=== PATIENT | female | born 1985 | race Caucasian/White ===

== ENCOUNTER 2021-08-31 17:56 | Inpatient (IN) | payer BC, SELFPAY ==
[2021-08-31] VITALS (59 sets, daily range): BP systolic 104–143; BP diastolic 57–111; PULSE 80–295; TEMP 37.4–37.6; O2SAT 98–100; BMI 30.7
[2021-08-31 19:21] LABS: Basophils Absolute Auto 0.1 K/mm3 (0.0-0.1); Basophils Percent Auto 0.6 % (0.2-1.2); Eosinophils Absolute Auto 0.1 K/mm3 (0-0.3); Eosinophils Percent Auto 1.6 % (0-4.4); Hematocrit 31.5 % (37.0-47.0); Hemoglobin 10.7 g/dL (12.0-15.0); Immature Granulocyte Absolute 0.11 K/mm3 (0.00-0.031); Immature Granulocyte Percent A 1.3 % (0-0.5); Lymphocytes Absolute Auto 2.07 K/mm3 (0.9-3.2); Lymphocytes Percent Auto 23.9 % (18.3-44.2); Mean Corpuscular Hemoglobin 31.6 pg (26-34); Mean Corpuscular Volume 92.9 fl (80-100); Mean Platelet Volume 10.6 fl (7.4-10.4); Monocytes Absolute Auto 0.9 K/mm3 (0.1-0.6); Monocytes Percent Auto 10.6 % (2.6-8.5); Neutrophils Absolute Auto 5.4 K/mm3 (1.3-6.7); Platelet Count Result 200 k/mm3 (150-375); Red Blood Count 3.39 M/mm3 (4.2-5.4); Red Cell Distribution Width 12.7 % (11.5-14.5); White Blood Count 8.7 K/mm3 (4.5-10.0)
[2021-08-31] MEDS: LACTATED RINGERS 1,000 ML 125 ML IV CONT ×2 (20:48→22:39)
[2021-08-31] MEDS: OXYTOCIN 30 UNITS/NS 500 ML 30 UNITS/500 ML BAG IV CONT (20:49)
--- NOTE | 2021-08-31 22:05 | WPDANESEPPF ---
Anes - Initial Pre Proc Eval Procedure: labor epidural Date/Time: 08/31/21 22:05 Surgeon: Vinnie Silva MD Pre Op Diagnosis: labor pain Pre Op Diagnosis: Leaking Patient Data Age: 36 Gender: F Height: 1.5 m Weight: 69 kg Last Vital Signs Temp 37.6 C H 08/31/21 20:28 Pulse 98 08/31/21 22:03 BP 118/74 08/31/21 22:03 Pulse Ox 100 08/31/21 22:02 Allergies Allergy/AdvReac Type Severity Reaction Status Date / Time adhesive Allergy Hives Verified 08/21/21 12:30 cucumber Allergy Hives Verified 08/21/21 12:30 tramadol Allergy Itching Verified 08/21/21 12:30 Home Medications Medication Instructions Recorded Confirmed Type ergocalciferol (vitamin D2) 1,250 mcg PO WEEKLY 08/21/21 08/21/21 History [Vitamin D2] omeprazole 20 mg PO DAILY 08/21/21 08/21/21 History prenat.vits,scooter,omp-euzc-qwirq 1 tablet PO DAILY 08/21/21 08/21/21 History [ #2] Lacto.acidophilus-Bif.animalis 1 cap PO DAILY 08/31/21 08/31/21 History [Daily Probiotic] Laboratory Tests 08/31/21 08/31/21 08/31/21 18:49 18:49 18:49 WBC 8.7 K/mm3 K/mm3 (4.5-10.0) RBC 3.39 M/mm3 L M/mm3 (4.2-5.4) Hgb 10.7 g/dL L g/dL (12.0-15.0) Hct 31.5 % L % (37.0-47.0) MCV 92.9 fl fl (80-100) MCH 31.6 pg pg (26-34) MCHC 34.0 g/dl g/dl (32-36) RDW 12.7 % % (11.5-14.5) Plt Count 200 k/mm3 k/mm3 (150-375) MPV 10.6 fl H fl (7.4-10.4) Immature Gran % (Auto) 1.3 % H % (0-0.5) Neut % (Auto) 62.0 % % (45.5-73.1) Lymph % (Auto) 23.9 % % (18.3-44.2) [place] % (Auto) 10.6 % H % (2.6-8.5) Eos % (Auto) 1.6 % % (0-4.4) Baso % (Auto) 0.6 % % (0.2-1.2) Lymph # (Auto) 2.07 K/mm3 K/mm3 (0.9-3.2) [place] # (Auto) 0.9 K/mm3 H K/mm3 (0.1-0.6) Eos # (Auto) 0.1 K/mm3 K/mm3 (0-0.3) Baso # (Auto) 0.1 K/mm3 K/mm3 (0.0-0.1) Abs Immat Gran (auto) 0.11 K/mm3 H K/mm3 (0.00-0.031) Absolute Neuts (auto) 5.4 K/mm3 K/mm3 (1.3-6.7) Absolute Nucleated RBC 0.0 K/mm3 K/mm3 (0.0-0.012) Nucleated RBC % 0.0 % % (0.0-0.2) RPR Pending Blood Type A Positive Antibody Screen Negative Patient hx anesthesia problems: none Family hx anesthesia problems: none Results Review: All pre-operative results and documents have been reviewed as part of the pre-operative evaluation. [facility] Family History Family History Father Prostate carcinoma Hypertension Stented coronary artery High cholesterol Grandparent Diabetes mellitus Heart disease Throat cancer Social History Social History Smoking status: Never smoker Second hand tobacco smoke exposure: No Substance use: never Spiritual care concerns: No Anes - Eval Final PreProcedure Day of Procedure 08/31/21 21:43 Patient weight: overweight Heart: regular rate and rhythm Lungs: clear to auscultation and normal air movement Airway: Mallampati scale class II Neurological: alert and oriented ASA classification: II Anesthetic plan: proceed Anesthesia type and monitoring: regional epidural and standard monitoring Results Review: All pre-operative results and documents have been reviewed as part of the pre-operative evaluation. Informed Consent: The patient's anesthetic plan and its attendant risks and benefits were discussed with the patient/family/POA. Questions were solicited and answers provided to the satisfaction of the patient/family/POA.
[2021-09-01] VITALS (71 sets, daily range): BP systolic 66–135; BP diastolic 37–86; PULSE 31–242; RESP 16–18; TEMP 36.4–37.7; O2SAT 80–100
--- NOTE | 2021-09-01 02:48 | PM.IMHP ---
H&P: HPI History of Present Illness Date/Time: 09/01/21 02:48 Chief Complaint: leakage of fluid intrauterine at term Narrative: 36 yo at 37w5d who presents with SROM. She reports some contractions. She believed she had SROM around midday on 08/31/21. She endorses good movement. She denies any vaginal bleeding. Her has been uncomplicated thus far. Review of Systems Cardiovascular: Cardiovascular: Denies chest pain, Denies leg edema, Denies palpitations, Denies dyspnea and Denies dyspnea on exertion Respiratory: Respiratory: Denies cough, Denies dyspnea and Denies dyspnea on exertion Gastrointestinal: Gastrointestinal: Denies abdominal pain, Denies constipation, Denies diarrhea, Denies nausea and Denies vomiting Genitourinary: Genitourinary: Denies hematuria, Denies urinary frequency, Denies dysuria, Denies pelvic pain, Denies urinary incontinence and Denies vaginal discharge Neurologic: Reports system reviewed and no additional complaints, except as documented Psychiatric: Psychiatric: Reports no additional psychiatric complaints Endocrine: Endocrine: Denies palpitations [facility] Family History Family History Father Prostate carcinoma Hypertension Stented coronary artery High cholesterol Grandparent Diabetes mellitus Heart disease Throat cancer Social History Social History Smoking status: Never smoker Second hand tobacco smoke exposure: No Substance use: never Spiritual care concerns: No Meds Home Medications and Allergies Home Medications Medication Instructions Recorded Confirmed Type ergocalciferol (vitamin D2) 1,250 mcg PO WEEKLY 08/21/21 08/21/21 History [Vitamin D2] omeprazole 20 mg PO DAILY 08/21/21 08/21/21 History prenat.vits,scooter,bhe-sdaw-orhhn 1 tablet PO DAILY 08/21/21 08/21/21 History [ #2] Lacto.acidophilus-Bif.animalis 1 cap PO DAILY 08/31/21 08/31/21 History [Daily Probiotic] Allergies Allergy/AdvReac Type Severity Reaction Status Date / Time adhesive Allergy Hives Verified 08/21/21 12:30 cucumber Allergy Hives Verified 08/21/21 12:30 tramadol Allergy Itching Verified 08/21/21 12:30 Vital Signs Vital Signs - 24 hr 08/31/21 18:30 08/31/21 19:00 08/31/21 19:15 Temperature 37.6 C H Pulse Rate 91 84 Blood Pressure 121/78 115/102 H 117/82 Pulse Oximetry 08/31/21 19:49 08/31/21 20:00 08/31/21 20:15 Temperature Pulse Rate 90 94 99 Blood Pressure 126/87 118/84 122/88 Pulse Oximetry 08/31/21 20:28 08/31/21 20:30 08/31/21 20:45 Temperature 37.6 C H Pulse Rate 87 90 Blood Pressure 118/76 123/75 Pulse Oximetry 08/31/21 21:00 08/31/21 21:41 08/31/21 21:42 Temperature Pulse Rate 80 Blood Pressure 130/84 Pulse Oximetry 99 99 08/31/21 21:43 08/31/21 21:47 08/31/21 21:48 Temperature Pulse Rate 106 H 92 Blood Pressure 140/99 H 136/82 Pulse Oximetry 100 08/31/21 21:50 08/31/21 21:51 08/31/21 21:52 Temperature Pulse Rate 91 89 Blood Pressure 133/82 126/67 Pulse Oximetry 100 08/31/21 21:54 08/31/21 21:57 08/31/21 22:00 Temperature Pulse Rate 279 H 93 96 Blood Pressure 128/102 H 120/75 124/84 Pulse Oximetry 100 08/31/21 22:02 08/31/21 22:03 08/31/21 22:06 Temperature Pulse Rate 98 86 Blood Pressure 118/74 123/76 Pulse Oximetry 100 08/31/21 22:07 08/31/21 22:09 08/31/21 22:12 Temperature 37.5 C Pulse Rate 88 Blood Pressure 110/85 126/72 Pulse Oximetry 100 99 08/31/21 22:15 08/31/21 22:17 08/31/21 22:18 Temperature Pulse Rate 92 85 Blood Pressure 105/91 H 128/77 Pulse Oximetry 100 08/31/21 22:21 08/31/21 22:22 08/31/21 22:24 Temperature Pulse Rate 90 88 Blood Pressure 121/78 118/81 Pulse Oximetry 100 08/31/21 22:27 08/31/21 22:30 08/31/21 22:32 Temperature Pulse Rate
--- NOTE | 2021-09-01 03:28 | PM.OBPRVD ---
OB - Delivery Note Procedure Procedure: Patient pushed for a spontaneous vaginal delivery. The fetus was delivered atraumatically and placed on the maternal abdomen. The cord was clamped and cut after 1 minute of life. The cord was double clamped and cut and a segment of cord was collected for cord gases. Cord blood was collected for blood type and Coomb's testing. The placenta delivered spontaneously and was noted to be intact. The perineum was inspected and there was a 1st degree right vaginall laceration. The laceration was repaired with 3-0 vicryl in the usual fashion. The uterus was firm and good hemostasis was noted. The patient and fetus were stable in the delivery room. Intrapartal events: None Induction method: none Delivery augmentation: pitocin Delivery monitor: external FHT Route of delivery: Episiotomy description: None Laceration Description: Vaginal - 1st Degree Delivery repair: vicryl Specimen: No Quantitative Blood Loss (ml): 150 Anesthesia type: Epidural Disposition: floor () Complications: No immediate complications [place] Baby Date of : 09/01/21 Time of : 03:16 Weeks of gestation at delivery: 37 Infant gender: Female Weight (pounds): 7 Weight (ounces): 3 presentation: vertex position: Right Occiput Anterior Placenta delivery description: Spontaneous cord vessel description: 3 Vessels score one minute: 8 score five minutes: 9
[2021-09-01] MEDS: OXYTOCIN 30 UNITS/NS 500 ML 30 UNITS/500 ML BAG 125 UNITS IV CONT (03:50)
[2021-09-01] MEDS: ACETAMINOPHEN 325 MG TABLET 650 MG PO ×2 (05:18→16:43)
--- NOTE | 2021-09-01 05:51 | PC.NURSE ---
Patient transferred to post room #291 via wheel chair. Support person present. Oriented to unit, room, and information board. Patient verbalizes understanding.
[2021-09-01] MEDS: MULTIVIT/MIN/PREN/FOL AC/IRON TABLET 1 TAB PO (07:18)
[2021-09-01] MEDS: IBUPROFEN 600 MG TABLET PO ×3 (07:18→20:15)
[2021-09-01] MEDS: POLYSACCHARIDE IRON COMPLEX 150 MG CAPSULE PO ×2 (07:18→16:43)
[2021-09-01] MEDS: DOCUSATE SODIUM 100 MG CAPSULE PO (07:18)
[2021-09-01] MEDS: LANOLIN (LANSINOH) 7.5 GM CREAM 1 APPLIC TOPICAL (12:57)
[2021-09-02] VITALS: BP 112/75; PULSE 62; RESP 16; TEMP 36.5
[2021-09-02] MEDS: ACETAMINOPHEN 325 MG TABLET 650 MG PO ×2 (01:23→21:42)
[2021-09-02 05:27] LABS: Hematocrit 27.7 % (37.0-47.0); Hemoglobin 9.3 g/dL (12.0-15.0)
[2021-09-02 06:11] LABS: Rapid Plasma Reagin Non-Reactive (NonReactive)
--- NOTE | 2021-09-02 07:03 | PM.OBPNVD ---
OB - PN: Subj Subjective Date/time seen: 09/02/21 07:03 Patient comments: no complaints and pain well controlled baby status: doing well and nursing well OB - PN: Obj Data Labs CBC & Chem 7: 09/02/21 04:06 Labs: Laboratory Results - last 24 hr 08/31/21 09/02/21 18:49 04:06 Hgb 9.3 L Hct 27.7 L RPR Non-reactive OB - PN A/P Plan day: 1 Plan: routine care Time Spent With Patient Time: Total time spent is greater than 50% in coordination of care (as documented) at patient's floor/unit and/or counseling patient: Time with patient: less than 15 minutes Review of Systems Review of Systems: All systems reviewed & are unremarkable except as noted in HPI and below Exam Const: General: no acute distress Eyes: General: appearance normal, both eyes and all related structures Neck: Neck: supple and no JVD Thyroid: thyroid normal Resp: Effort & Inspection: normal respiratory effort Auscultation: clear to auscultation bilaterally Cardio: Rate: regular rate Rhythm: regular rhythm GI: Inspection: non-distended GI Palp: Yes Soft to palpation, No Tenderness to palpation present (GI) and No Guarding due to palpation present (GI) Auscultation: normal bowel sounds : General: Yes bladder normal to palpation External Female Exam: normal external appearance Speculum Exam - Vagina: normal vaginal discharge and No vaginal bleeding Speculum Exam - Cervix: nontender Bimanual exam- vagina & uterus: bladder normal to palpation and No Cervical tenderness present OB/external & speculum: No vaginal bleeding Skin: General skin exam: no rashes or lesions noted Extrem: General: normal to inspection and no edema Psych: Mental Status: mental status grossly normal Affect: normal affect
--- NOTE | 2021-09-02 07:40 | WPDANLDPN2 ---
Anes-Prog Note L&D Date/Time: 09/02/21 07:40 Comfortable throughout: labor and delivery Neuraxial method: epidural Epidural/Spinal procedure site: clean & non-tender Neuro status: Neuro function grossly intact. Cardiovascular status: normal Respiratory status: normal Airway patency: baseline Mental status: baseline Post-Op hydration status: normal Vital Signs: Last Vital Signs Temp 36.5 C 09/02/21 00:00 Pulse 62 09/02/21 00:00 Resp 16 09/02/21 00:00 BP 112/75 09/02/21 00:00 Pulse Ox 100 09/01/21 16:47 Pain score (VAS): 0 Post-procedural complaints: none Patient feedback: Patient satisfied with anesthetic care.
[2021-09-02 07:55] VITALS: BP 108/82; PULSE 77; RESP 18; TEMP 37; O2SAT 98
[2021-09-02] MEDS: POLYSACCHARIDE IRON COMPLEX 150 MG CAPSULE PO ×2 (08:34→17:04)
[2021-09-02] MEDS: MULTIVIT/MIN/PREN/FOL AC/IRON TABLET 1 TAB PO (08:34)
[2021-09-02] MEDS: DOCUSATE SODIUM 100 MG CAPSULE PO ×2 (08:34→17:04)
[2021-09-02] MEDS: IBUPROFEN 600 MG TABLET PO ×2 (08:35→17:04)
--- NOTE | 2021-09-02 09:45 | PC.NURSE ---
Mother called out for assist with feeding, reporting she has issued with latch after infant had a pacifier. Mother was give a nipple shield to assist with latching. Discussed nipple shield precautions and possible complications. Advised to attempt latch first without shield. Instructions given on application and cleaning of shield. Patient able to return demonstration on proper application of shield. Discussed the need to initiate pumping if continues to nurse with the shield. Patient verbalizes understanding. is able to freely thrust tongue past gum ridge and flange both lips. Skin is intact on both nipples, slight redness noted and no bruising noted. Left nipple larger than right. Discussed establishing in the late may be more difficult due to their immaturity, infant may be less alert, have less stamina, and have greater difficulty with latch, suck, and swallow. Infant?s feeding may impact mother?s milk supply, pumping may need to be initiated until milk supply is well established if is not effectively feeding and infant is able to effectively breastfeed without supplementation. Reviewed feeding cues, frequencies, duration of feedings, feeding elimination flow sheet, and signs of adequate intake. Demonstrated stimulation techniques to wake for feeding. Assisted with to breast. Reviewed positioning/alignment in cross cradle, holding breast in ?U? hold and guided asymmetrical latch on. Reviewed rational for each. Infant able to latch correctly within a few attempts. nursed eagerly with steady draws and occasional swallowing noted, some pausing noted. Reviewed signs of a correct latch, effective nursing and suck swallow ratio. Suggested mother stimulate while feeding to increase stimulation for milk supply, for increased intake and to assist with maintaining deep latch. would slip to shallow latch causing tenderness. Demonstrated how to adjust latch more deeply while feeding as needed. Mother reports she can feel the difference in latch with less tenderness. Nipple care reviewed of lanolin after feedings, warm compresses as needed. Instructed mother to call out for RN assistance if she is unable to latch for feeding or she has discomfort with nursing. Instructed feeding should be initiated three hours from start of last feeding or if feeding cues are noted before. Mother voiced understanding of information shared.
--- NOTE | 2021-09-02 10:15 | PC.NURSE ---
Mother called out for assist switching infant to other breast. Upon entering mother independently latched correctly in cross cradle. was latched correctly nursing eagerly with steady draws and occasional swallowing noted. Mother stimulated infant to keep nursing effectively.
[2021-09-02 21:35] VITALS: BP 119/71; PULSE 67; RESP 16; TEMP 36.3; O2SAT 99
[2021-09-02] MEDS: PANTOPRAZOLE 40 MG TABLET PO (21:40)
[2021-09-03] MEDS: IBUPROFEN 600 MG TABLET PO ×2 (05:05→13:00)
--- NOTE | 2021-09-03 07:07 | PM.DS ---
DS: Admitting Diagnosis Discharge Date 08/31 12/30 Admitting Diagnosis 37 week in active labor DS: Summary Hospital Course Hospital Course: 36-year-old multiparous admitted at term in active labor. She underwent spontaneous vaginal delivery which was unremarkable. Her course was unremarkable as well. She remained afebrile. She was up, ambulating, breast-feeding, and generally without complaints Time Spent with Patient Time attestation: Total time spent providing and/or coordinating discharge services: Discharge Plan Discharge Attending physician on discharge: Vinnie Silva Discharging Clinician: Vinnie Silva Patient Disposition: Home, Self-Care Activity: may shower, no straining and pelvic rest Diet: heart healthy Wound Care Instructions: follow printed instructions Patient Instructions: Antibiotic Form Stand Alone Forms: General Discharge Information Follow-up/Referrals: Vinnie Silva MD [Physician] - Discharge Medications: Continued omeprazole 20 mg Capsule,Delayed Release(Dr/Ec) 20 mg PO DAILY RF: 0 ergocalciferol (vitamin D2) [Vitamin D2] 1,250 mcg (50,000 unit) Capsule 1,250 mcg PO WEEKLY RF: 0 #2 Tablet 1 tablet PO DAILY RF: 0 Daily Probiotic 2.5 billion cell Capsule 1 cap PO DAILY RF: 0 Date of admission: 08/31/21 17:56 Primary Care Provider: Shakeel,Angel Retana Admitting Provider: Vinnie Silva Attending physician on admission: Vinnie Silva Condition: Stable
[2021-09-03 08:00] VITALS: BP 114/78; PULSE 84; RESP 16; TEMP 36.8; O2SAT 100
--- NOTE | 2021-09-03 08:00 | PC.NURSE ---
Pt introductions made and plan of care discussed per post , pain management, breast feeding and supplementing, daily care activities and pending discharge to home. PT and spouse both recipients of such instructions. PT received instructions per one to one discussion, mom baby care guide and demonstrations this shift. No barriers to learning identified. PT verbalized understanding of such instructions.
--- NOTE | 2021-09-03 08:15 | PC.NURSE ---
consult with pt., mother reports infant is eagerly latching with minimal discomfort. She is now supplementing due to infant weight loss of 9% and will continue until her milk is well established. Observed mother is able to independently latch with appropriate positioning/alignment. She denies any nipple discomfort, is feeding as required and waking to feed if needed. Infant is more awake and eagerly feeding maintaining latch. has at least 8 effective feedings in the past 24 hours, and supplemented after weight check. is currently meeting outcomes for output, jaundice and feeding frequencies. Mother continues to pump after all feedings without difficulties or discomfort. Mother has a pump for home use, assisted mother with use before discharge. Discussed the difference of effective vs ineffective feeding. Feeding plan discussed, Feeding Plan is for mother to put to breast each feeding for up to 15 minutes, then pace feed supplement 25-30 mls and pump for 10-15 minutes. Discussed increasing supplementation as requires to satisfactions. Reviewed paced feeding and suggested to stop when infant is satisfied, as long as infant is having required output. With increased supplementation may not want to feed for 4 hours. Mother will continue to pump on feeding schedule and will increase session to 20 minutes if pumping every 4 hours. Reviewed transition to breast milk, signs of adequate intake, and engorgement/relief. Instructed to call ICP if intake/output less than required. Reviewed regular medications mother is taking. Information provided per Merle. Reviewed community resources on the [facility] website and in the Mom/Baby guide. Information on outpatient services provided. Mother has no further questions at this time.
[2021-09-03 09:30] VITALS: PULSE 84; RESP 16; O2SAT 100
[2021-09-03] MEDS: ACETAMINOPHEN 325 MG TABLET 650 MG PO (09:56)
[2021-09-03] MEDS: POLYSACCHARIDE IRON COMPLEX 150 MG CAPSULE PO (09:56)
[2021-09-03] MEDS: MULTIVIT/MIN/PREN/FOL AC/IRON TABLET 1 TAB PO (09:57)
[2021-09-03] MEDS: DOCUSATE SODIUM 100 MG CAPSULE PO (09:57)
--- NOTE | 2021-09-03 12:15 | PC.NURSE ---
PT received discharge instructions per protocol and verbalized understanding
--- NOTE | 2021-09-03 13:06 | PC.NURSE ---
PT discharged to home ambulatory accompanied by spouse and to waiting car. Follow up appts confirmed
[2021-09-04 07:45] VITALS: BP 116/86; PULSE 88; RESP 16; TEMP 36.9; O2SAT 100
== END 2021-09-03 13:06 | disposition home or self-care (01) | DRG 807 ==
LOC: ANHLDR 18:27 → ANHOB2 09-01 05:58
PROVIDERS: Student in an Organized Health Care Education/Training Program; Admitting Provider Obstetrics & Gynecology; PCP Internal Medicine Infectious Disease; Visit Provider Obstetrics & Gynecology
DX: O76 Abnormality in fetal heart rate and rhythm complicating labor and delivery (principal); Z37.0 Single live birth; O70.0 First degree perineal laceration during delivery; Z3A.37 37 weeks gestation of pregnancy; Z23 Encounter for immunization
CPT/HCPCS: 36415; 85014; 85018; 85025; 86592; 86850; 86900; 86901; A9270; J2590; J2795; J7120

== ENCOUNTER 2023-04-16 02:38 | Day surgery (SDC) | payer BC, SELFPAY ==
[2023-04-15 14:10] VITALS: BMI 27.6
--- NOTE | 2023-04-15 14:13 | PC.NURSE ---
Report to the Outpatient Waiting Room, entrance under the green pavilion located off [facility], at time 0600 on date 04/16/23. Planned Procedure Time: 0730. Time changes happen often and if your time is changed the preop area will call you the afternoon before. - You and your visitor will be asked to self-screen and do not enter if you have any COVID symptoms. - A mask is optional within the hospital at this time. Patients may have clear liquids (water, carbonated beverages, clear teas, apple juice) until 3 hours prior to surgery with a maximum of 20 ounces. - No food from midnight until time of surgery Take the following medications with a SIP of water the morning of surgery: NONE DO NOT STOP ANY OF YOUR OTHER PRESCRIPTION MEDICATIONS PRIOR TO SURGERY ?EXCEPT THE FOLLOWING Medications to discontinue per physician: VITAMINS Date to take last dose: NO MORE UNTIL AFTER SURGERY Please no make-up, nail latvian, hairspray, perfume, deodorant, or body powder the day of surgery. No jewelry (including any body piercings) or valuables the day of surgery, leave them at home. Please take a shower or bath the night before, or the morning of, surgery with an antibacterial soap. Wear comfortable, loose fitting clothing. - Jewelry must be removed prior to entering the operating room. Rings and piercings that are not removed may be cut off. - The hospital will not accept responsibility for valuables. - Please leave all valuables, including medications, at home the day of surgery. If you are going home after surgery, a licensed stage driver must drive you home. - NO public transportation without another adult if you receive anesthesia. - We recommend that an adult stay with you for 24 hours following discharge. - We also recommend that you do not drive, make important decision, drink alcoholic beverages, or take any drugs that were not prescribed by your health care provider for at least 24 hours after your discharge time. Follow any additional instructions given to you from your surgeon. If you or anyone in your household have experienced Covid symptoms in the past week, please notify your surgeon or the nurse liaison at the phone number below for possible testing. Telephone instructions given to PT - LORRI ELMORE and asked if any additional questions and then verbalized understanding. Patient advised to call surgeon office or pre surgery nurse liaison [phone] if any additional questions.
--- NOTE | 2023-04-15 16:10 | PM.IMHP ---
H&P: HPI History of Present Illness Date/Time: 04/15/23 16:10 Chief Complaint: First-trimester missed A/B Narrative: This 38-year-old multiparous patient with first-trimester missed A/B ultrasound proves blighted ovum. She off for suction dilatation curettage. Risks and benefits reviewed [facility] Family History Family History Father Prostate carcinoma Hypertension Stented coronary artery High cholesterol Grandparent Diabetes mellitus Heart disease Throat cancer Social History Social History Smoking status: Never smoker Second hand tobacco smoke exposure: No Alcohol intake: never Substance use: never Substance use type: does not use Living arrangements: with family Spiritual care concerns: No Meds Home Medications and Allergies Home Medications Medication Instructions Recorded Confirmed Type ascorbic acid (vitamin C) 500 mg 500 mg PO HS 04/15/23 04/15/23 History tablet (Vitamin C) famotidine 20 mg tablet 20 mg PO HS 04/15/23 04/15/23 History montelukast 10 mg tablet 10 mg PO HS 04/15/23 04/15/23 History vitamins no.144-folic 1 tablet PO HS 04/15/23 04/15/23 History acid 400 mcg chewable tablet () Allergies Allergy/AdvReac Type Severity Reaction Status Date / Time adhesive Allergy Hives Verified 04/15/23 14:08 cucumber Allergy Hives Verified 04/15/23 14:08 tramadol Allergy Itching Verified 04/15/23 14:08 Exam Const: General: cooperative, healthy appearing, comfortable and average body habitus Orientation/consciousness: oriented to person, oriented to place and oriented to time Resp: Effort & Inspection: normal respiratory effort Cardio: Rate: regular rate Rhythm: regular rhythm Heart sounds: S1 normal heart sound present and S2 normal heart sound present GI: Inspection: normal to inspection : External Female Exam: normal external appearance Speculum Exam - Vagina: normal appearance of the vagina Speculum Exam - Cervix: normal appearance of the cervix Bimanual exam- vagina & uterus: enlarged Bimanual Exam- Adnexa, other: normal adnexae Assessment and Plan Assessment and plan (1) Missed : Code(s): O02.1 - Missed Status: Acute Plan Suction dilatation and curettage
--- NOTE | 2023-04-16 07:22 | WPDHPUPDATE1 ---
History and Physical Update Update Date/Time: 04/16/23 07:22 History and Physical has been reviewed, including an updated exam of the patient. There are NO changes in the patient's condition. Risks, benefits, and alternatives have been discussed and questions answered. Patient agrees to proceed with procedure.
[2023-04-16] MEDS: LACTATED RINGERS 1,000 ML 30 ML IV CONT (12:30)
--- NOTE | 2023-04-16 12:38 | P.PNAN_ITS ---
Anes - Initial Pre Proc Eval Procedure: Operation Date: 04/16/23 14:00 Proposed Procedures p Suction Dilation and Curettage - Vinnie Miller MD Date/Time: 04/16/23 12:38 Surgeon: Vinnie Miller MD Pre Op Diagnosis: missed ab Patient Data Age: 38 Gender: F Height: 1.47 m Weight: 60 kg Allergies Allergy/AdvReac Type Severity Reaction Status Date / Time adhesive Allergy Hives Verified 04/16/23 13:00 cucumber Allergy Hives Verified 04/16/23 13:00 tramadol Allergy Itching Verified 04/16/23 13:00 Home Medications Medication Instructions Recorded Confirmed Type ascorbic acid (vitamin C) 500 mg 500 mg PO HS 04/15/23 04/16/23 History tablet (Vitamin C) famotidine 20 mg tablet 20 mg PO HS 04/15/23 04/16/23 History montelukast 10 mg tablet 10 mg PO HS 04/15/23 04/16/23 History vitamins no.144-folic 1 tablet PO HS 04/15/23 04/16/23 History acid 400 mcg chewable tablet () ibuprofen 800 mg tablet 800 mg PO Q6H PRN pain #14 tabs 04/16/23 Rx Patient hx anesthesia problems: none Family hx anesthesia problems: none Results Review: All pre-operative results and documents have been reviewed as part of the pre- operative evaluation. [facility] Past Medical History Medical History (Updated 04/16/23 @ 12:39 by Arslan Atkinson DO) Asthma GERD (gastroesophageal reflux disease) PONV (postoperative nausea and vomiting) Surgical History Surgical History (Updated 04/16/23 @ 12:39 by Arslan Atkinson DO) History of tonsillectomy Family History Family History Father Prostate carcinoma Hypertension Stented coronary artery High cholesterol Grandparent Diabetes mellitus Heart disease Throat cancer Social History Social History Smoking status: Never smoker Second hand tobacco smoke exposure: No Alcohol intake: never Substance use: never Substance use type: does not use Living arrangements: with family Spiritual care concerns: No Anes - Eval Final PreProcedure Day of Procedure 04/16/23 12:38 Patient weight: overweight Heart: regular rate and rhythm Lungs: clear to auscultation Airway: Mallampati scale class II Neurological: alert and oriented Last oral intake: >/= 8 hours ASA classification: II Emergent: no Anesthetic plan: proceed Anesthesia type and monitoring: general GIVS and standard monitoring Results Review: All pre-operative results and documents have been reviewed as part of the pre- operative evaluation. Informed Consent: The patient's anesthetic plan and its attendant risks and benefits were discussed with the patient/family/POA. Questions were solicited and answers provided to the satisfaction of the patient/family/POA.
[2023-04-16 12:45] VITALS: BP 124/62; PULSE 66; RESP 16; TEMP 36.7; O2SAT 100
[2023-04-16 12:50] LABS: Hematocrit 37.1 % (37.0-47.0); Hemoglobin 12.1 g/dL (12.0-15.0)
[2023-04-16] MEDS: ACETAMINOPHEN 500 MG TABLET 1000 MG PO (12:50)
[2023-04-16] MEDS: LIDOCAINE HCL 1% LOCAL INJ 20 ML VIAL 10 ML INFILTRATE (13:53)
--- NOTE | 2023-04-16 13:54 | W.PM.PROC2 ---
Procedure Note - Detailed Date of Procedure 04/16/23 Pre-op Diagnosis missed ab Post-op Diagnosis Same Procedure Performed Suction dilatation curettage Surgeon Vinnie Miller MD Anesthesia MAC and Local Indications 38-year-old female with first-trimester missed A/B Findings uterus sounded 10cm. Tissue consistent with products conception Description of Procedure patient was prepped draped sterile fashion placed in dorsal lithotomy position. Under excellent IV sedation weighted speculum placed in posterior fornix vagina. Anterior lip of cervix grasped with single-tooth tenaculum. 2.5cc 1% xylocaine anesthesia placed at 2, 4, 8, 10:00 a.m. of the cervix. Uterus sounded to 10cm. Serial dilatation with fragmented dilators performed followed passes the 10. Suction curette. Once a good grating sound was heard the instruments were withdrawn. Blood loss estimated 25cc. All sponge, needle, instrument counts were correct. Patient went recovery in satisfactory condition and did not require RhoGAM as she is Rh positive Estimated Blood Loss 25 Drains No Packing No Pathology Yes Complications No immediate complications Condition Stable Disposition PACU
[2023-04-16 13:56] VITALS: BP 107/62; PULSE 69; O2SAT 100
--- NOTE | 2023-04-16 14:19 | SUR.PHASEII ---
Patient's blood type is A+. No Rhogam needed.
[2023-04-16 14:20] VITALS: BP 104/56; PULSE 55; O2SAT 100
[2023-04-16 14:50] VITALS: BP 96/79; PULSE 119
[2023-04-16 15:15] VITALS: BP 90/66; PULSE 74
== END 2023-04-16 15:20 | disposition home or self-care (01) ==
PROVIDERS: PCP Internal Medicine Infectious Disease; Visit Provider Obstetrics & Gynecology
PROC: (CPT 59820; principal; 2023-04-16 14:00)
DX: O02.1 Missed abortion (principal); J45.909 Unspecified asthma, uncomplicated; K21.9 Gastro-esophageal reflux disease without esophagitis
CPT/HCPCS: 59820; 36415; 85014; 85018; 85461; 86850; 86900; 86901; 88305; A9270; J1100; J2250; J2405; J2704; J3010; J7120

== ENCOUNTER 2024-02-11 23:00 | Observation (INO) | payer BC, SELFPAY ==
[2024-02-11 23:14] VITALS: BP 126/79; PULSE 87
[2024-02-11 23:30] VITALS: BP 109/64; PULSE 88
[2024-02-12 01:42] VITALS: BMI 32.5
--- NOTE | 2024-02-12 01:42 | OBADM ---
This patient, Leigh Ann Jordan, admitted to the OB room Labor/Delivery/Recovery 105 for observation. Patient/family oriented to hospital policies and general routines including ID bracelet, bed and alarms, visiting hours, pain management, procedures, bathroom and other care routines, personal items, smoking policy, room service/diet, and visiting hours. Patient/Family are encouraged to report perceived risks to care and to ask questions if they do not understand what they are told or what they should do.
--- NOTE | 2024-02-12 02:13 | PC.NURSE ---
Dr. Anabel Miller paged at [phone]. Dr. Anabel Miller responded to page at [phone]. Anabel Miller MD notified of patient arrival to unit with complaints of contractions since 1844 yesterday evening. RN notified MD that patient states her contractions were 4 minutes apart. RN notified MD of cervical exam upon arrival and then unchanged cervical exam after two hours of monitoring patient. RN also notified MD of patient contractions of every 1.5-6 minutes apart. RN notified MD of reassuring heart tones. MD gave orders to discharge patient at this time. RN discussed plan of care with patient, patient agrees with plan of care.
--- NOTE | 2024-02-16 12:51 | PM.OBTRLD ---
OB - Triage/Final Diagnosis Visit Information Reason for evaluation: threatened labor Comments/Additional reasons for admission: I have assessed the risk for this patient, Leigh Ann Jordan, and determined that she would benefit from observation care.
== END 2024-02-12 02:13 | disposition home or self-care (01) ==
PROVIDERS: Admitting Provider Obstetrics & Gynecology; PCP Internal Medicine Infectious Disease; Visit Provider Obstetrics & Gynecology
DX: O47.1 False labor at or after 37 completed weeks of gestation (principal); Z3A.37 37 weeks gestation of pregnancy
CPT/HCPCS: G0378; G0379

== ENCOUNTER 2024-02-24 04:56 | Inpatient (IN) | payer BC, SELFPAY ==
[2024-02-24] VITALS (73 sets, daily range): BP systolic 81–125; BP diastolic 47–86; PULSE 34–133; RESP 16–18; TEMP 36.3–37.1; O2SAT 79–100; BMI 32.3
--- NOTE | 2024-02-24 05:17 | LDADM ---
This patient, Leigh Ann Jordan, was admitted to Labor/Delivery/Recovery 104 on 02/24/24 at 04:56. Plans for labor, pain management and were discussed with patient. Patient/family oriented to hospital policies and general routines including ID bracelet, bed and alarms, visiting hours, pain management, procedures, bathroom and other care routines, personal items, smoking policy, room service/diet and guest tray routines, security routines, and visiting hours. Patient/Family are encouraged to report perceived risks to care and to ask questions if they do not understand what they are told or what they should do. See OBIX for further documentation.
[2024-02-24 05:40] LABS: Basophils Absolute Auto 0.1 K/mm3 (0.0-0.1); Basophils Percent Auto 0.7 % (0.2-1.2); Eosinophils Absolute Auto 0.6 K/mm3 (0-0.3); Eosinophils Percent Auto 4.8 % (0-4.4); Hematocrit 32.9 % (37.0-47.0); Hemoglobin 10.5 g/dL (12.0-15.0); Immature Granulocyte Absolute 0.48 K/mm3 (0.00-0.031); Immature Granulocyte Percent A 3.7 % (0-0.5); Lymphocytes Absolute Auto 2.95 K/mm3 (0.9-3.2); Lymphocytes Percent Auto 22.9 % (18.3-44.2); Mean Corpuscular HGB Conc 31.9 g/dl (32-36); Mean Corpuscular Hemoglobin 31.5 pg (26-34); Mean Corpuscular Volume 98.8 fl (80-100); Mean Platelet Volume 9.4 fl (7.4-10.4); Monocytes Absolute Auto 0.9 K/mm3 (0.1-0.6); Monocytes Percent Auto 7.3 % (2.6-8.5); Neutrophils Absolute Auto 7.8 K/mm3 (1.3-6.7); Neutrophils Percent Auto 60.6 % (45.5-73.1); Platelet Count Result 264 k/mm3 (150-375); Red Blood Count 3.33 M/mm3 (4.2-5.4); White Blood Count 12.9 K/mm3 (4.5-10.0)
--- NOTE | 2024-02-24 06:13 | PM.IMHP ---
H&P: HPI History of Present Illness Date/Time: 02/24/24 06:13 Chief Complaint: Elective induction Narrative: 39-year-old 4 para 1021 whose last menstrual period was 05/22/2023, EDC is 03/02/2024, presenting at39+ weeks gestation for induction of labor. She is negative for group B strep and has a favorable cervix PMFSH Past Medical History Medical History Asthma GERD (gastroesophageal reflux disease) PONV (postoperative nausea and vomiting) Surgical History Surgical History History of tonsillectomy Family History Family History Father Stented coronary artery High cholesterol Prostate carcinoma Hypertension Grandparent Throat cancer Diabetes mellitus Heart disease Congestive heart failure Grandparent Colon cancer Social History Social History Smoking status: Never smoker Second hand tobacco smoke exposure: No Alcohol intake: never Substance use: never Substance use type: does not use Do You Feel Safe in your Home?: Yes Lack of Transportation: No Lack of Food: Never True Current Housing: I Have Housing Concerned About Future Housing: No Difficulty Paying Gas/Electric Bills: No Difficulty Paying for Meds: No Currently Unemployed: No Education: Bachelor's Degree Difficulty w/ Childcare or Family Care: No Living arrangements: with family Spiritual care concerns: No Meds Home Medications and Allergies Home Medications Medication Instructions Recorded Confirmed Type ascorbic acid (vitamin C) 500 mg 500 mg PO HS 04/15/23 02/03/24 History tablet (Vitamin C) famotidine 20 mg tablet 20 mg PO HS 04/15/23 02/03/24 History montelukast 10 mg tablet 10 mg PO HS 04/15/23 02/03/24 History vitamins no.144-folic 1 tablet PO HS 04/15/23 02/03/24 History acid 400 mcg chewable tablet () ergocalciferol (vitamin D2) 1,250 1,250 mcg PO DAILY 02/03/24 02/03/24 History mcg (50,000 unit) capsule (Vitamin D2) Allergies Allergy/AdvReac Type Severity Reaction Status Date / Time adhesive Allergy Hives Verified 02/03/24 13:31 cucumber Allergy Hives Verified 02/03/24 13:31 tramadol Allergy Itching Verified 02/03/24 13:31 Vital Signs Vital Signs - 24 hr 02/24/24 05:14 02/24/24 05:15 02/24/24 05:30 Pulse Rate 91 88 Blood Pressure 120/72 108/69 Oxygen Delivery Room Air Exam Const: General: cooperative, healthy appearing, comfortable and average body habitus Orientation/consciousness: oriented to person, oriented to place and oriented to time HENMT: Head: normal to inspection Resp: Effort & Inspection: normal respiratory effort Cardio: Rate: regular rate Rhythm: regular rhythm Heart sounds: S1 normal heart sound present and S2 normal heart sound present GI: Inspection: normal to inspection ( gravid soft uterus) : External Female Exam: normal external appearance Speculum Exam - Vagina: normal appearance of the vagina Speculum Exam - Cervix: normal appearance of the cervix ( cervix 3/75/2. AROM with light Meconium. FHTs were reassuring) H&P: Results Labs Labs: Short CBC 02/24/24 Range/Units 05:23 WBC 12.9 H (4.5-10.0) K/mm3 Hgb 10.5 L (12.0-15.0) g/dL Hct 32.9 L (37.0-47.0) % Plt Count 264 (150-375) k/mm3 Assessment and Plan Assessment and plan (1) Term : Code(s): Z34.90 - Encounter for supervision of normal , unspecified, unspecified trimester Status: Acute Plan medical induction of labor. Spontaneous vaginal delivery is expected. She has an epidural candidate
[2024-02-24] MEDS: OXYTOCIN 30 UNITS/NS 500 ML 30 UNITS/500 ML BAG IV CONT (07:06)
[2024-02-24] MEDS: LACTATED RINGERS 1,000 ML 125 ML IV CONT ×2 (07:06→09:18)
[2024-02-24] MEDS: FAMOTIDINE 20 MG/2 ML VIAL IV PUSH (07:43)
[2024-02-24] MEDS: ONDANSETRON INJ 4 MG/2 ML VIAL IV PUSH (10:01)
--- NOTE | 2024-02-24 12:01 | PM.OBPRVD ---
OB - Vaginal Delivery Note Procedure Delivery date: 02/24/24 Events: Elective Induction of Labor Induction method: AROM Delivery augmentation: Pitocin Delivery monitor: External FHT and External Uterine Route of delivery: Episiotomy description: None Laceration Description: None Quantitative Blood Loss (ml): 61 Anesthesia type: Epidural Disposition: Floor Complications: No immediate complications Baby Date of : 02/24/24 Time of : 11:52 Weeks of gestation at delivery: 39 gender: Female presentation: vertex position: Right Occiput Anterior Placenta delivery description: Spontaneous Cord Vessel Description: 3 Vessels score one minute: 9 score five minutes: 9
--- NOTE | 2024-02-24 12:02 | P.DS_ITS ---
DS: Admitting Diagnosis Discharge Date 02/25/24 Admitting Diagnosis Term DS: Discharge Diagnosis Discharge Diagnosis (1) Term : Code(s): Z34.90 - Encounter for supervision of normal , unspecified, unspecified trimester Status: Acute DS: Summary Hospital Course Reason for hospitalization: patient was admitted on 02/24/2024 for induction of labor and underwent spontaneous vaginal delivery with epidural anesthesia Hospital Course: her hospital course unremarkable. She remained afebrile. She was up, voiding without difficulty, eating a good diet, ambulating generally without complaints. Routine discharge instructions were given Time Spent with Patient Time attestation: Total time spent providing and/or coordinating discharge services: Exam Const: General: cooperative, healthy appearing and comfortable Nutritional Appearance: average body habitus Orientation/consciousness: oriented to person, oriented to place and oriented to time HENMT: Head: normal to inspection Resp: Effort & Inspection: normal respiratory effort Cardio: Rate: regular rate Rhythm: regular rhythm Heart sounds: S1 normal heart sound present and S2 normal heart sound present GI: Inspection: normal to inspection ( fundus firm below the umbilicus) DS: Data Data Completed and Pending Labs on day of discharge: Labs from last 24 hours 02/24/24 05:23 WBC 12.9 H RBC 3.33 L Hgb 10.5 L Hct 32.9 L MCV 98.8 MCH 31.5 MCHC 31.9 L RDW 14.0 Plt Count 264 MPV 9.4 Immature Gran % (Auto) 3.7 H Neut % (Auto) 60.6 Lymph % (Auto) 22.9 [place] % (Auto) 7.3 Eos % (Auto) 4.8 H Baso % (Auto) 0.7 Lymph # (Auto) 2.95 [place] # (Auto) 0.9 H Eos # (Auto) 0.6 H Baso # (Auto) 0.1 Abs Immat Gran (auto) 0.48 H Absolute Neuts (auto) 7.8 H Absolute Nucleated RBC 0.000 Nucleated RBC % 0.0 Blood Type A Positive Antibody Screen Negative Discharge Plan Discharge Attending physician on discharge: Vinnie Keating Discharging Clinician: Vinnie Keating Patient Disposition: Home, Self-Care Activity: may shower and pelvic rest Diet: heart healthy Wound Care Instructions: follow printed instructions Patient Instructions: Antibiotic Form Stand Alone Forms: General Discharge Information Follow-up/Referrals: Vinnie Keating MD [Physician] - Discharge Medications: Continued famotidine 20 mg Tablet 20 mg PO HS ascorbic acid (vitamin C) [Vitamin C] 500 mg Tablet 500 mg PO HS montelukast 10 mg tablet 10 mg PO HS 400 mcg Tablet,Chewable 1 tablet PO HS ergocalciferol (vitamin D2) [Vitamin D2] 1,250 mcg (50,000 unit) capsule 1,250 mcg PO DAILY Date of admission: 02/24/24 04:56 Primary Care Provider: Shakeel,Angel Retana Admitting Provider: Vinnie Keating Attending physician on admission: Vinnie Keating Condition: Stable
[2024-02-24] MEDS: OXYTOCIN 30 UNITS/NS 500 ML 30 UNITS/500 ML BAG 125 UNITS IV CONT (12:29)
[2024-02-24] MEDS: WITCH HAZEL 40 PADS 1 PAD TOPICAL (14:18)
[2024-02-24] MEDS: BENZOCAINE 20% AER SPR (*SP) 56 GM CAN 1 SPRAY TOPICAL (14:18)
--- NOTE | 2024-02-24 14:45 | PC.NURSE ---
Patient transferred to post room #283 via wheelchair. Support person present. Oriented to unit, room, information board, rooming in, admission packet and security measures. Patient verbalizes understanding.
[2024-02-24] MEDS: IBUPROFEN 600 MG TABLET PO ×2 (15:11→23:14)
--- NOTE | 2024-02-24 16:01 | PC.NURSE ---
[id number] Introductions were made, then consulted with patient to assess needs related to . Discussed with mother her?plans to feed?her infant, the?experience so far with latching without pain. Encouraged understanding of the benefits of skin to skin (demonstrating unwrapping infant and placing upright on her chest), stimulating with massage touch, changing positions to encourage wakefulness, how to watch for early feeding cues, responsive feeding, feeding on demand offering breast/breast milk every 1-3 hours, milk production, building/maintaining a milk supply, hand expression and signs of adequate intake/output and how to record on the feeding sheet. Mother works well with her with encouragement and education. Reviewed how to visualize the suckling (with good rocking jaw motion), and swallows (dropping of the lower jaw) with a longer suck. parent shared she will watch for the longer sucks at the next feeding as she also describes hearing the swallow with ta sounds at the earlier feeding. is sleepy and reluctant at this time at about 4 hours of life. Reviewed with parents typical behavior of a between the 2nd and 6th hour of life and how to encourage feeding with hand expression and finger feeding infant watching for early feeding cues while they are awake. Infant is upright [id number] on parents chest/breast with blanket covering. Inpatient resources provided with RN LC name written on the communication board and to call Primary RN if there is difficulty waking to breastfeed or pain with . Parents voiced understanding of the education and shared that this infant is doing much better than their first.
[2024-02-25 04:00] VITALS: BP 109/61; PULSE 72; RESP 16; TEMP 36.6; O2SAT 99
[2024-02-25 05:02] LABS: Hematocrit 28.3 % (37.0-47.0); Hemoglobin 9.1 g/dL (12.0-15.0)
[2024-02-25] MEDS: IBUPROFEN 600 MG TABLET PO ×2 (05:16→13:15)
--- NOTE | 2024-02-25 05:21 | P.PNOB_ITS ---
OB - PN: Subj Subjective Date/time seen: 02/25/24 05:21 Patient comments: no complaints and pain well controlled baby status: doing well and nursing well OB - PN: Obj Data Labs 02/25/24 04:10 Labs: Laboratory Results - last 24 hr 02/24/24 02/25/24 05:23 04:10 WBC 12.9 H RBC 3.33 L Hgb 10.5 L 9.1 L Hct 32.9 L 28.3 L MCV 98.8 MCH 31.5 MCHC 31.9 L RDW 14.0 Plt Count 264 MPV 9.4 Immature Gran % (Auto) 3.7 H Neut % (Auto) 60.6 Lymph % (Auto) 22.9 [place] % (Auto) 7.3 Eos % (Auto) 4.8 H Baso % (Auto) 0.7 Lymph # (Auto) 2.95 [place] # (Auto) 0.9 H Eos # (Auto) 0.6 H Baso # (Auto) 0.1 Abs Immat Gran (auto) 0.48 H Absolute Neuts (auto) 7.8 H Absolute Nucleated RBC 0.000 Nucleated RBC % 0.0 Blood Type A Positive Antibody Screen Negative OB - PN A/P Plan day: 1 Plan: routine care, discharge home and follow up 6 weeks Time Spent With Patient Time: Total time spent is greater than 50% in coordination of care (as documented) at patient's floor/unit and/or counseling patient: Time with patient: less than 15 minutes Exam Const: General: cooperative, healthy appearing and comfortable Nutritional Appearance: average body habitus Orientation/consciousness: oriented to person, oriented to place and oriented to time Resp: Effort & Inspection: normal respiratory effort Cardio: Rate: regular rate Rhythm: regular rhythm Heart sounds: S1 normal heart sound present and S2 normal heart sound present GI: Inspection: normal to inspection
[2024-02-25 07:45] VITALS: BP 90/56; PULSE 70; RESP 16; TEMP 36.6; O2SAT 100
--- NOTE | 2024-02-25 07:53 | WPDANLDPN2 ---
Anes-Prog Note L&D Date/Time: 02/25/24 07:53 Comfortable throughout: labor and delivery Neuraxial method: epidural Epidural/Spinal procedure site: clean & non-tender Neuro status: Neuro function grossly intact. Cardiovascular status: normal Respiratory status: normal Airway patency: baseline Mental status: baseline Post-Op hydration status: normal Vital Signs: Last Vital Signs Temp 36.6 C 02/25/24 04:00 Pulse 72 02/25/24 04:00 Resp 16 02/25/24 04:00 BP 109/61 02/25/24 04:00 Pulse Ox 99 02/25/24 04:00 O2 Del Method Room Air 02/24/24 05:14 Pain score (VAS): 0 I/O: Intake & Output 02/24/24 02/24/24 02/25/24 15:59 23:59 07:59 Intake Total 275 240 Output Total 167 Balance 108 240 Post-procedural complaints: none Patient feedback: Patient satisfied with anesthetic care.
[2024-02-25] MEDS: MULTIVIT/MIN/PREN/FOL AC/IRON TABLET 1 TAB PO (10:58)
[2024-02-25] MEDS: DOCUSATE SODIUM 100 MG CAPSULE PO (10:58)
[2024-02-25] MEDS: POLYSACCHARIDE IRON COMPLEX 150 MG CAPSULE PO (10:58)
--- NOTE | 2024-02-25 11:46 | PC.NURSE ---
[id number] Consulted with patient to assess needs related to . Discussed with mother her successes, concerns and any questions she has. is swaddled in the bassinet and we are nearing 2 hours from the start of the last feeding. We reviewed working with the , supporting breast, protecting her nipples with an optimal deep latch, good positioning, and good hand washing. Encouraged understanding the benefits of skin to skin, responding to feeding cues, frequencies of feeding 8-12 times in 24 hours (approximately 2-3 hours), duration of feedings, milk production, intake/output feeding sheet and signs of adequate intake encouraging swallowing at the breast. Mother shared her nipples are sore this morning and she has not noticed any misshaping, however; her nipples were tender while . Mother attempted to latch infant independently using the cradle positioning with the arm of the crossing the body. is not opening with a big wide open gape and mother attempts to put the nipple into the infants mouth. Reviewed positioning and alignment, supporting breast, off-centered (asymmetrical latch) and leading with the chin with big, open, wide gape and patiently waiting for the big open. Suggested cross cradle with a sandwich hold to mother for an optimal latch since infant is attempting to latch shallow. latched optimally to the right breast in cross cradle position with mother encouraged to sandwich her breast for a deeper latch. Education given to the mother of how to visualize the suckling (with good rocking jaw motion) swallows (dropping of the lower jaw) and how to listen for drinking at the breast (the ka sound) which demonstrates occasionally. Reviewed gentle massage and compression to encourage more milk swallows. The was able to maintain latch without discomfort to mother after the initial latch which begins with discomfort, then subsides. Mother shared the deeper latch feels better. Nipple care reviewed with optimal latch, good positioning and using clean hands when touching her breast. Resources used to facilitate learning were used from the visual handouts/ tool. Mother voiced understanding of the education shared, to call for assistance if the infant does not latch or if there is discomfort with . Reported to the Primary RN.
--- NOTE | 2024-02-25 14:15 | PC.NURSE ---
Patient viewed the discharge video Mother & Baby Care, The First Two Weeks . Patient was given the opportunity and encouraged to ask questions. Patient verbalized understanding of information shared and has been given the mother/baby guide for home reference.
== END 2024-02-25 14:40 | disposition home or self-care (01) | DRG 807 ==
LOC: ANHLDR 12:04 → ANHOB2 14:52
PROVIDERS: Admitting Provider Obstetrics & Gynecology; PCP Internal Medicine Infectious Disease; Visit Provider Obstetrics & Gynecology
DX: O77.0 Labor and delivery complicated by meconium in amniotic fluid (principal); Z37.0 Single live birth; Z3A.39 39 weeks gestation of pregnancy
CPT/HCPCS: 36415; 85014; 85018; 85025; 86850; 86900; 86901; A9270; J2405; J2590; J2795; J7120

== ENCOUNTER 2025-09-20 07:57 | Outpatient (CLI) | payer BC, SELFPAY ==
--- NOTE | ~2025-09-20 | MR_ITS ---
EXAM/PROCEDURE: MR ankle LT wo con HISTORY: Chronic paresthesias L heel COMPARISON: None TECHNIQUE: Multiplanar left ankle MRI performed without contrast. FINDINGS: No fracture subluxation or dislocation present. A small to moderate size plantar calcaneal spur is present with mild hyperintense T2-weighted signal changes throughout the spur, as well as infiltrative/edematous appearing changes in the soft tissues immediately contiguous with the spur. The plantar aponeurosis is also abnormal signal, hyperintense on T2-weighted sequences 4 approximately 3 cm distal to the calcaneal attachment; the medial bundle is also thickened, and amorphous in appearance compared to the lateral bundle with linear fluid signal in the mid substance portion. See image 8 series 8. The medial bundle remains thickened through the midfoot region but has more normal signal, in the midfoot region. Within the ankle itself, the talofibular, calcaneofibular, and deltoid ligaments appear intact. There is less portion of the Achilles tendon, as well as the flexor and extensor tendons appear intact. Focal area of hyperintense T2-weighted signal within the peroneal longus tendon just before the fibular groove with mild adjacent edematous changes noted. See images 11 through 13 of series 2. Trace joint effusion. Chondral articulating margins appear preserved. Subtalar and tarsal tunnel regions appear normal. IMPRESSION: 1. Moderately severe inflammation/injury involving the medial bundle of the plantar aponeurosis extending from the calcaneal attachment through the midfoot. Linear fluid intense signal defect in the proximal portion suggests intrasubstance tear. Mild hyperintense signal changes in the plantar spur also suggests at least mild osteitis. 2. Possible small intrasubstance tear involving the peroneal longus tendon as it extends into the fibular groove. Reviewed, dictated and finalized at location A. NURSE IMPRESSION: 1. Moderately severe inflammation/injury involving the medial bundle of the ernestine ntar aponeurosis extending from the calcaneal attachment through the midfoot. L inear fluid intense signal defect in the proximal portion suggests intrasubstan ce tear. Mild hyperintense signal changes in the plantar spur also suggests at least mild osteitis. 2. Possible small intrasubstance tear involving the peroneal longus tendon as i t extends into the fibular groove.
== END 2025-09-20 07:58 | disposition home or self-care (01) ==
PROVIDERS: PCP Internal Medicine Infectious Disease; Visit Provider Podiatrist Foot & Ankle Surgery
DX: M72.2 Plantar fascial fibromatosis (principal); M79.2 Neuralgia and neuritis, unspecified
CPT/HCPCS: 73721